=== PATIENT | male | born 1970 | race Caucasian/White ===

== ENCOUNTER 2017-09-10 09:49 | Outpatient (CLI) | payer BC | END 2017-09-10 09:50 | disposition home or self-care (01) | LOC: BICRAD 09:49 | PROVIDERS: ATTEND Family Medicine | DX: M25.571 Pain in right ankle and joints of right foot (principal) ==

== ENCOUNTER 2022-06-23 12:58 | Outpatient (CLI) | payer BC | END 2022-06-23 12:59 | disposition home or self-care (01) | LOC: ULT 12:58 | PROVIDERS: ATTEND Family Medicine | DX: N50.89 Other specified disorders of the male genital organs (principal); N43.3 Hydrocele, unspecified | CPT/HCPCS: 76870; 93976 ==

== ENCOUNTER 2023-06-01 12:12 | Observation (INO) | payer BC ==
[2023-06-01 12:58] LABS: #Eosinphils 0.1 thou/uL (0.0-0.7); #Monocytes 0.6 thou/uL (0.11-0.59); #Neutrophils 5.7 thou/uL (1.40-6.50); %Basophils 0.1 % (0.0-1.0); %Eosinophils 0.7 % (0.0-10.0); %Lymphocytes 21.6 % (21.0-51.0); %Monocytes 7.5 % (0.0-10.0); %Neutrophils 69.9 % (42.0-75.0); Hematocrit 44.4 % (42.0-52.0); Hemoglobin 15.4 g/dL (14.0-18.0); Mean Corpuscular HGB CONC 34.7 g/dL (32.0-36.0); Mean Corpuscular Hemoglobin 30.9 pg (27.0-31.0); Mean Platelet Volume 11.1 fL (7.4-10.4); Platelet Count 233 10x3/uL (130-400); RBC Distribution Width 12.4 % (11.5-14.5); Red Blood Cell (RBC) Count 4.99 mill/uL (4.70-6.10); White Blood Cell (WBC) Count 8.1 10x3/uL (4.8-10.8)
[2023-06-01] MEDS ORDERED: methylPREDNISolone Sod Succ/PF 125 MG/2 ML VIAL ONE (13:03)
[2023-06-01 13:13] LABS: ALT (SGPT) 36 U/L (8-55); AST (SGOT) 20 U/L (5-34); Albumin 4.7 g/dL (3.5-5.0); Alkaline Phosphatase 65 U/L (40-110); Anion Gap 14 mmol/L (10-20); BUN (Urea Nitrogen) 10 mg/dL (8.4-25.7); Bilirubin, Total 0.5 mg/dL (0.2-1.2); Calc. Creatinine Clearance 0 mL/min (70-130); Calcium 9.8 mg/dL (7.8-10.44); Carbon Dioxide 23 mmol/L (22-29); Chloride 106 mmol/L (98-107); Estimated GFR 104; Globulin 2.5 g/dL (2.4-3.5); Glucose 104 mg/dL (70-105); Potassium 3.8 mmol/L (3.5-5.1); Protein, Total 7.2 g/dL (6.0-8.3); Sodium 139 mmol/L (136-145)
[2023-06-01] MEDS ORDERED: Acetaminophen 325 MG TAB PO PRN (14:23)
[2023-06-01] MEDS ORDERED: methylPREDNISolone Sod Succ 40 MG VIAL IVP SCH (15:15)
[2023-06-01] MEDS ORDERED: methylPREDNISolone Sod Succ/PF 125 MG/2 ML VIAL IVP SCH ×2 (15:15→18:00)
[2023-06-01] MEDS ORDERED: Insulin Regular 300 UNITS/3 ML VIAL SC PRN (15:19)
[2023-06-01] MEDS ORDERED: Dextrose 50% Abboject 50 ML SYRINGE SLOW IVP PRN (15:19)
[2023-06-01] MEDS ORDERED: Dextrose 5% in Water 1,000 ML IV PRN (15:19)
[2023-06-01] MEDS ORDERED: Glucagon 1 MG/ML KIT IM PRN (15:19)
[2023-06-01] MEDS: methylPREDNISolone Sod Succ 40 MG VIAL IVP SCH (15:54)
[2023-06-01] MEDS: METHYLPREDNISOLONE SOD SUCC IVPB SCH (16:00)
[2023-06-01] MEDS: SODIUM CHLORIDE 0.9% IVPB SCH (16:00)
[2023-06-01 16:14] VITALS: BMI 37.3
[2023-06-01] MEDS: FLU VACC QS2023-24(6MOS UP)/PF 60 MCG/0.5 ML SYRINGE IM ONE (17:40)
[2023-06-01] MEDS: Atorvastatin Calcium 20 MG TAB PO SCH (23:03)
[2023-06-02 05:06] LABS: #Monocytes 0.1 thou/uL (0.11-0.59); #Neutrophils 12.9 thou/uL (1.40-6.50); %Basophils 0.1 % (0.0-1.0); %Lymphocytes 7.2 % (21.0-51.0); %Monocytes 0.7 % (0.0-10.0); %Neutrophils 91.7 % (42.0-75.0); Hematocrit 46.3 % (42.0-52.0); Hemoglobin 15.7 g/dL (14.0-18.0); Mean Corpuscular HGB CONC 33.9 g/dL (32.0-36.0); Mean Corpuscular Hemoglobin 30.4 pg (27.0-31.0); Mean Corpuscular Volume 89.6 fl (78.0-98.0); Mean Platelet Volume 11.3 fL (7.4-10.4); Platelet Count 239 10x3/uL (130-400); RBC Distribution Width 12.2 % (11.5-14.5); Red Blood Cell (RBC) Count 5.17 mill/uL (4.70-6.10); White Blood Cell (WBC) Count 14.1 10x3/uL (4.8-10.8)
[2023-06-02 05:19] LABS: Anion Gap 15 mmol/L (10-20); BUN (Urea Nitrogen) 14 mg/dL (8.4-25.7); Calc. Creatinine Clearance 164 mL/min (70-130); Calcium 9.6 mg/dL (7.8-10.44); Carbon Dioxide 21 mmol/L (22-29); Chloride 106 mmol/L (98-107); Estimated GFR 103; Glucose 160 mg/dL (70-105); Potassium 3.6 mmol/L (3.5-5.1); Sodium 138 mmol/L (136-145)
[2023-06-02] MEDS ORDERED: Non-Formulary Item 1 EACH (Lisinopril/Hydrochlorothiazide [Lisinopril-Hctz 20-12.5 Mg Tab PO SCH (09:00)
[2023-06-02] MEDS ORDERED: methylPREDNISolone Sod Succ 40 MG VIAL IVP SCH (09:00)
[2023-06-02] MEDS: Lisinopril 20 MG TAB PO SCH (09:09)
[2023-06-02] MEDS: Hydrochlorothiazide 25 MG TAB PO SCH (09:10)
[2023-06-02 09:12] VITALS: BP 149/74; TEMP 98.2
[2023-06-02] MEDS: methylPREDNISolone Sod Succ 1,000 MG in Sodium Chloride 0.9% 250 ML 250 ML IVPB SCH (09:12)
[2023-06-02] MEDS: metFORMIN 500 MG TAB PO SCH ×2 (11:07→16:56)
== END 2023-06-02 17:11 | disposition home or self-care (01) ==
LOC: ERS 12:12 → T4-A 15:28
PROVIDERS: ADMIT Student in an Organized Health Care Education/Training Program; ATTEND Student in an Organized Health Care Education/Training Program
DX: M79.2 Neuralgia and neuritis, unspecified (principal); H46.9 Unspecified optic neuritis; R73.03 Prediabetes; Z79.899 Other long term (current) drug therapy; Z90.89 Acquired absence of other organs
CPT/HCPCS: 36415; 70553; 80048; 80053; 83036; 85025; 86140; 90471; 90686; 96374; 96376; G0008; G0378; J2930; J7050

== ENCOUNTER 2023-06-18 07:53 | Outpatient (CLI) | payer BC | END 2023-06-18 07:54 | disposition home or self-care (01) | LOC: BICMRI 07:53 | PROVIDERS: ATTEND Psychiatry & Neurology Neurology | DX: G37.9 Demyelinating disease of central nervous system, unspecified (principal); M47.812 Spondylosis without myelopathy or radiculopathy, cervical region; M48.02 Spinal stenosis, cervical region | CPT/HCPCS: 72156 ==

== ENCOUNTER 2023-06-19 06:46 | Day surgery (SDC) | payer BC ==
[2023-06-19] MEDS ORDERED: Sodium Bicarbonate 2.5 MEQ/5 ML SDV ONE (06:58)
[2023-06-19 11:30] LABS: CSF, Glucose 70 mg/dl (40-70); CSF, Protein 46 mg/dL (15-40)
[2023-06-19 11:41] LABS: CSF RBC Count - Manual 1 /cu.mm (None Seen); CSF Source CSF; CSF WBC/NonHematics Count-Man 1 /cu.mm (0-5); Clarity Clear (Clear); Tube # 4
[2023-06-20 09:14] LABS: Folate (Folic Acid) Greater than 20.0 ng/mL (>3.0)
[2023-06-23 14:39] LABS: VDRL, CSF Non Reactive (Non Rea:<1:1)
== END 2023-06-19 09:45 | disposition home or self-care (01) ==
LOC: RAD 06:46
PROVIDERS: ATTEND Psychiatry & Neurology Neurology
PROC: 009U3ZZ Drainage of Spinal Canal, Percutaneous Approach (ICD-10-PCS; principal; 2023-06-19)
DX: G37.9 Demyelinating disease of central nervous system, unspecified (principal)
CPT/HCPCS: 62270; 82040; 82042; 82525; 82746; 82784; 82945; 83873; 83916; 84157; 84425; 86592; 86618; 87070; 87205; 87529; 87899; 89051